=== PATIENT | male | born 1980 | race Caucasian/White ===

== ENCOUNTER 2018-07-19 14:28 | Emergency (ER) | payer OTHER ==
[~2018-07-19] VITALS: Ht 175.3 cm; Wt 116.1 kg
[~2018-07-19 14:28] MED LIST: CARI350T PO; HYDR-3974 PO; LORA-258 PO; QUET25TA PO; TADA2.5T PO; ZOLP10TA2 PO
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
--- NOTE | 2018-07-19 14:42 | NUR ---
DR ALEXANDRE AT BEDSIDE
[2018-07-19] MEDS ORDERED: HYDROCODONE/APAP 10/325MG 1 EA TABLET ONE (14:53)
[2018-07-19] MEDS ORDERED: HYDROCODONE/APAP 10/325MG 1 EA TABLET PO ONE (15:00)
[2018-07-19] MEDS ORDERED: KETOROLAC TROMETHAMINE INJ 60 MG/2 ML VIAL IM ONE (16:30)
[2018-07-19] MEDS ORDERED: KETOROLAC TROMETHAMINE INJ 30 MG/ML VIAL ONE (16:33)
--- NOTE | 2018-07-19 16:49 | NUR ---
Patient discharged to home in stable condition. Written and verbal after care instructions given. Patient verbalizes understanding of instruction.
[2018-07-19 16:50] VITALS: BP 138/87
== END 2018-07-19 16:50 | disposition home or self-care (01) ==
LOC: ER 14:32
DX: R07.89 Other chest pain (principal); M79.645 Pain in left finger(s); G89.4 Chronic pain syndrome; Z98.890 Other specified postprocedural states; Z88.8 Allergy status to other drugs, medicaments and biological substances; Z79.899 Other long term (current) drug therapy; W19.XXXA Unspecified fall, initial encounter; Y93.89 Activity, other specified; Y92.89 Other specified places as the place of occurrence of the external cause; Y99.8 Other external cause status
CPT/HCPCS: 71045; 73140; 96372; 99283; A4606; J1885